=== PATIENT | male | born 1980 | race African-American/Black ===

== ENCOUNTER 2020-10-28 06:36 | Emergency (ER) | payer MEDICAID, OTHER ==
[~2020-10-28] VITALS: Ht 175.3 cm; Wt 91.0 kg
[2020-10-28] MEDS ORDERED: METH-375 PO (07:18)
[2020-10-28] MEDS ORDERED: KETOROLAC 60MG/2ML VIAL IM ONE (07:30)
[2020-10-28 07:32] VITALS: BP 128/76
== END 2020-10-28 07:45 | disposition home or self-care (01) ==
LOC: ER 06:36
DX: M62.830 Muscle spasm of back (principal); M62.838 Other muscle spasm; J45.909 Unspecified asthma, uncomplicated; V43.52XA Car driver injured in collision with other type car in traffic accident, initial encounter; Y93.89 Activity, other specified; Y92.410 Unspecified street and highway as the place of occurrence of the external cause
CPT/HCPCS: 96372; 99283; J1885